=== PATIENT | male | born 1960 | race Caucasian/White ===

== ENCOUNTER 2017-10-05 18:09 | Emergency (ER) | payer OTHER ==
[~2017-10-05] VITALS: Ht 172.7 cm; Wt 95.3 kg
[~2017-10-05 18:09] MED LIST: NIASPAN; NORCO 5-325 TA1 EACH PO; SINGULAIR
[2017-10-05] MEDS ORDERED: HYDROCODONE-AP1 EAC6 PO (21:06)
[2017-10-05 21:21] VITALS: BP 142/83
== END 2017-10-05 21:22 | disposition home or self-care (01) ==
LOC: ER 18:09
DX: S00.83XA Contusion of other part of head, initial encounter (principal); S00.33XA Contusion of nose, initial encounter; S20.211A Contusion of right front wall of thorax, initial encounter; J45.909 Unspecified asthma, uncomplicated; W18.39XA Other fall on same level, initial encounter; Y93.89 Activity, other specified; Y92.89 Other specified places as the place of occurrence of the external cause; Y99.8 Other external cause status

== ENCOUNTER 2018-06-10 18:27 | Emergency (ER) | payer OTHER ==
[~2018-06-10] VITALS: Ht 172.7 cm; Wt 89.7 kg
[~2018-06-10 18:27] MED LIST changes: +HYDROCODONE-AP1 EAC6 PO
[2018-06-10 19:38] LABS: ABSOLUTE NEUTROPHILS 8.1 thou/uL (1.4-8.2); BASOPHILS 0.3 % (0.0-2.0); EOSINOPHILS 0.8 % (0.0-3.0); HEMATOCRIT 49.2 % (42.0-52.0); HEMOGLOBIN 17.1 gm/dL (14.0-18.0); LYMPHOCYTES 12.3 % (24.0-44.0); MCH 32.5 pg (26.0-34.0); MCHC 34.8 g/dL (28.0-37.0); MCV 93.5 fL (80.0-100.0); MONOCYTES 10.3 % (1.0-8.0); PLATELET COUNT 155 thou/uL (150-400); POLYS 76.3 % (36.0-66.0); RBC 5.26 mil/uL (4.50-6.00); RDW 14.2 % (10.5-14.5); WBC 10.6 thou/uL (4.0-11.0)
[2018-06-10 19:45] LABS: CALCIUM 9.8 mg/dL (8.5-10.1); POTASSIUM 3.9 mmol/L (3.5-5.1)
[2018-06-10 19:51] LABS: ALBUMIN 3.8 g/dL (3.4-5.0); TOTAL PROTEIN 8.6 g/dL (6.4-8.2)
[2018-06-10] MEDS ORDERED: VENTOLIN HFA 1818 GM INH (20:47)
[2018-06-10] MEDS ORDERED: TESSALON PERLE100 MG PO (20:47)
[2018-06-10 20:49] VITALS: BP 135/86
== END 2018-06-10 20:58 | disposition home or self-care (01) ==
LOC: ER 18:27
PROVIDERS: Physician Assistant
DX: J20.9 Acute bronchitis, unspecified (principal); J06.9 Acute upper respiratory infection, unspecified; J45.909 Unspecified asthma, uncomplicated

== ENCOUNTER 2018-08-29 17:43 | Emergency (ER) | payer OTHER ==
[~2018-08-29] VITALS: Ht 172.7 cm; Wt 86.2 kg
[~2018-08-29 17:43] MED LIST changes: +TESSALON PERLE100 MG PO; +VENTOLIN HFA 1818 GM INH
[2018-08-29 18:41] VITALS: BP 144/84
== END 2018-08-29 18:49 | disposition home or self-care (01) ==
LOC: ER 17:43
DX: S01.01XA Laceration without foreign body of scalp, initial encounter (principal); S80.212A Abrasion, left knee, initial encounter; J45.909 Unspecified asthma, uncomplicated; W18.39XA Other fall on same level, initial encounter; Y93.89 Activity, other specified; Y92.89 Other specified places as the place of occurrence of the external cause; Y99.8 Other external cause status

== ENCOUNTER 2019-02-19 18:48 | Emergency (ER) | payer OTHER ==
[~2019-02-19] VITALS: Ht 172.7 cm; Wt 88.0 kg
[2019-02-19] MEDS ORDERED: SYMBICORT160 MCG/4. INH (18:59)
[2019-02-19] MEDS ORDERED: PRAVACHOL20 MG PO (18:59)
[2019-02-19] MEDS ORDERED: SINGULAIR 10 MG10 M1 PO (18:59)
[2019-02-19 19:27] LABS: ABSOLUTE NEUTROPHILS 5.2 thou/uL (1.4-8.2); BASOPHILS 0.5 % (0.0-2.0); EOSINOPHILS 3.7 % (0.0-3.0); HEMATOCRIT 43.6 % (42.0-52.0); HEMOGLOBIN 14.8 gm/dL (14.0-18.0); LYMPHOCYTES 14.7 % (24.0-44.0); MCH 32.2 pg (26.0-34.0); MCV 94.7 fL (80.0-100.0); MONOCYTES 10.6 % (1.0-8.0); PLATELET COUNT 142 thou/uL (150-400); POLYS 70.5 % (36.0-66.0); RBC 4.61 mil/uL (4.50-6.00); RDW 13.9 % (10.5-14.5); WBC 7.3 thou/uL (4.0-11.0)
[2019-02-19 19:33] LABS: ANION GAP 8 mmol/L (7-16); BUN 16 mg/dL (7-18); CALCIUM 9.2 mg/dL (8.5-10.1); CHLORIDE 100 mmol/L (98-107); CO2 28 mmol/L (21-32); CREATININE 1.2 mg/dL (0.7-1.3); GLUCOSE 218 mg/dL (74-106); POTASSIUM 3.8 mmol/L (3.5-5.1); SODIUM 136 mmol/L (136-145)
[2019-02-19 19:43] LABS: ALBUMIN 3.6 g/dL (3.4-5.0); SGOT 24 U/L (15-37); SGPT 22 U/L (30-65); TOTAL BILIRUBIN 0.6 mg/dL (<0.1-1.0); TOTAL PROTEIN 7.4 g/dL (6.4-8.2); TROPONIN-I <0.06 ng/mL (<0.06)
[2019-02-19] MEDS ORDERED: PREDNISONE 20 M20 MG PO (21:54)
[2019-02-19] MEDS ORDERED: VENTOLIN HFA 1818 GM INH (21:54)
[2019-02-19] MEDS ORDERED: DOXYCYCLINE 10100 MG PO (21:54)
[2019-02-19] MEDS ORDERED: ALBUTEROL2.5 MG/31 INH (21:57)
[2019-02-19 22:14] VITALS: BP 120/64
== END 2019-02-19 22:15 | disposition home or self-care (01) ==
LOC: ER 18:48
PROVIDERS: Physician Assistant
DX: J18.9 Pneumonia, unspecified organism (principal); J45.909 Unspecified asthma, uncomplicated